=== PATIENT | male | born 1990 | race African-American/Black ===

== ENCOUNTER 2017-12-03 19:33 | Emergency (ER) | payer OTHER ==
[~2017-12-03] VITALS: Ht 188 cm; Wt 98.4 kg
[2017-12-03] MEDS ORDERED: IV NORMAL SALINE 1,000ML 1,000 ML IV ONE (21:15)
--- NOTE | 2017-12-03 21:17 | RAD ---
History: Dislocated playing basketball. Previous dislocations. Comparison: None. Findings: 2 AP external rotation and one scapular Y view of the right shoulder, 3 images. Anterior dislocation of the glenohumeral joint is seen. Impression: Anterior glenohumeral dislocation. Electronically signed by: Yohan Argueta MD (12/03/2017 9:14 PM) [facility]
[2017-12-03] MEDS ORDERED: ETOMIDATE 40 MG/20 ML VIAL. IV ONE ×2 (21:30→22:00)
[2017-12-03] MEDS ORDERED: IBUP200T44 PO (22:23)
--- NOTE | 2017-12-03 22:24 | PHYS DOC ---
Past History Past Medical History Right shoulder dislocations Past Surgical History: No Surgical History Smoking: Cigarettes Alcohol Use: Occasionally Drug Use: Marijuana Adult General Chief Complaint Chief Complaint: SHOULDER INJURY HPI HPI 27-year-old male presents from correctional facility ([facility]) with report of right shoulder dislocation which occurred approximately 3 hours prior to arrival. Patient reports history of multiple prior right shoulder dislocations. Patient reports he was playing basketball and was reaching for ball when injury occurred. Denies head trauma. Denies neck pain. Denies numbness or tingling. Review of Systems Review of Systems Constitutional: Denies fever or chills [] Respiratory: Denies cough or shortness of breath [] Cardiovascular: Denies chest pain or syncope GI: Denies abdominal pain, nausea, vomiting, bloody stools or diarrhea [] Musculoskeletal: Reports right shoulder pain Integument: Denies rash or skin lesions [] Neurologic: Denies focal weakness or sensory changes []] Complete systems were reviewed and found to be within normal limits, except as documented in this note. Current Medications Current Medications Current Medications Medications (Trade) Dose Ordered Sig/Sami Start Time Stop Time Status Last Admin Dose Admin Etomidate (Amidate) 5 mg 1X ONCE 12/03/17 22:00 12/03/17 22:01 DC 12/03/17 21:57 5 MG Fentanyl Citrate (Fentanyl 2ml Vial) 75 mcg 1X ONCE 12/03/17 21:30 12/03/17 21:31 DC 12/03/17 21:36 75 MCG Sodium Chloride 1,000 ml @ 1,000 mls/hr 1X ONCE 12/03/17 21:15 12/03/17 22:14 DC 12/03/17 21:36 1,000 MLS/HR Allergies Allergies Allergies Coded Allergies Type Severity Reaction Last Updated Verified iodine Allergy Intermediate 12/03/17 Yes shellfish derived Allergy Intermediate 12/03/17 Yes Physical Exam Physical Exam Constitutional: Well developed, well nourished; appears uncomfortable HENT: Normocephalic, atraumatic, Eyes: PERRL, EOMI, conjunctiva normal, no discharge. [] Neck: Normal range of motion, no tenderness, supple, no stridor. [] Cardiovascular:Heart rate regular rhythm, no murmur [] Lungs & Thorax: Bilateral breath sounds clear to auscultation [] Skin: Warm, dry, no erythema, no rash. [] Extremities: Right shoulder deformity consistent with anterior dislocation appreciated, right radial pulse +2/4, Refill less than 2 seconds, sensation intact Neurologic: Alert and oriented X 3, normal motor function, normal sensory function, no focal deficits noted. [] Psychologic: Affect normal, judgement normal, mood normal. [] Current Patient Data Vital Signs Vital Signs Date Time Temp Pulse Resp B/P (MAP) Pulse Ox O2 Delivery O2 Flow Rate FiO2 12/03/17 19:35 99.0 57 18 160/94 (116) 98 Room Air EKG EKG [] Radiology/Procedures Radiology/Procedures PROCEDURE: SHOULDER 2+V RIGHT History: Dislocated playing basketball. Previous dislocations. Comparison: None. Findings: 2 AP external rotation and one scapular Y view of the right shoulder, 3 images. Anterior dislocation of the glenohumeral joint is seen. Impression: Anterior glenohumeral dislocation. Electronically signed by: Yohan Argueta MD (12/03/2017 9:14 PM) [facility]] PROCEDURE: SHOULDER 2+V RIGHT History: Status post reduction. Comparison: Earlier December 03, 2017. Findings: Scapular Y and AP internal rotation views of the right shoulder. There is interval reduction of anterior glenohumeral dislocation. Osseous defect is seen involving the posterolateral humeral head, compatible with Hill-Sachs lesion. Impression: 1. Interval reduction of right glenohumeral dislocation. 2. Hill-Sachs lesion. Electronically signed by: Yohan Argueta MD (12/03/2017 10:21 PM) [facility] Course & Med Decision Making Course & Med Decision Making Pertinent Labs and Imaging studies reviewed. (See chart for details) Patient presents with history of present illness and physical exam consistent for right anterior shoulder dislocation. Limb neurovascularly intact. X-ray obtained which confirmed anterior dislocation. Shoulder manipulation and interval reduction performed under moderate sedation. Shoulder immobilizer placed. Repeat x-ray confirmed no fracture with successful reduction.Patient stable for discharge back to correctional facility with outpatient follow-up with orthopedics. Discussed findings and plan with patient, who acknowledges understanding and agreement. Dragon Disclaimer Dragon Disclaimer This electronic medical record was generated, in whole or in part, using a voice recognition dictation system. Splinting Splinting : Location: right shoulder Pre-Made Type: shoulder immobilizer Pre-Proc Neuro Vasc Exam: normal Post-Proc Neuro Vasc Exam: normal, unchanged from pre-exam Joint Reduction Joint Reduction : Joint Reduction Site: shoulder (R) Conscious Sedation: Yes Reduction Attempts: 1 Pre-Procedure NV Exam: Yes Post-Procedure NV Exam: Yes Post Joint Reduction Film: joint reduced (without fracture appreciated) RISKS/ALTERNATIVES Risks/Alternatives Risks and alternatives of this type of sedation and procedure discussed with: RISK/ALTERNATIVES DISCUSSED: Patient H & P ON CHART H & P H & P on chart and reviewed for co-morbid conditions and appropriate labs. H&P ON CHART: Yes STATUS PREG STATUS ASSESSED: N/A MEDS/ALLERGIES REVIEWED Meds/Allergies Reviewed Medications and Allergies including time and route of recently administered narcotics and sedatives. MEDS/ALLERGIES REVIEWED: Yes ASA RATING ASA RATING: I AIRWAY ASSESSMENT Airway Assessment Airway patency, oral function limitations, presence of caps, crowns, dentures, partials, and ability to extend neck assessed. AIRWAY ASSESSMENT: Yes MALLAMPATI SCORE MALLAMPATI SCORE: II PRE-SEDATION ASSESSMENT PRE-SEDATION PHYSICAL: Yes Departure Departure: Impression: Primary Impression: Shoulder dislocation Disposition: 01 HOME, SELF-CARE (back to correctional facility) Condition: STABLE Referrals: PCP,NO (PCP) Patient Instructions: Shoulder Dislocation, [id number] Additional Instructions: Orthopedics- Dr. BULLARD Scripts Ibuprofen (MOTRIN IB) 200 Mg Tablet 400 MG PO Q6HRS PRN for PAIN, #20 TAB Prov: YOHAN GARCIA DO 12/03/17 Joint Reduction Procedure Joint Indication: Right shoulder dislocation Consent: Written (on chart) Procedure: The pre-reduction exam showed anterior dislocation of right shoulder. The patient was placed in sitting position. Anesthesia/pain control utilized with 75mcg of fentanyl and 15 mg of etomidate. Etomidate administered by myself. Reduction of the shoulder] was performed by traction/ countertraction. Post reduction films with interval reduction without fracture. A post-reduction exam revealed continued neurovascularly intact limb]. The affected area was immobilized with a shoulder immobilizer. The patient tolerated the procedure well. Complications: None. Problem Qualifiers Primary Impression: Shoulder dislocation Encounter type: initial encounter Laterality: right Qualified Codes: S43.004A - Unspecified dislocation of right shoulder joint, initial encounter YOHAN GARCIA DO Dec 03, 2017 22:24
[2017-12-03 22:30] VITALS: BP 160/99
== END 2017-12-03 22:34 | disposition home or self-care (01) ==
LOC: ER 19:33 → EEVIPCON 19:33 → ER 22:34
DX: S43.004A Unspecified dislocation of right shoulder joint, initial encounter (principal); F17.210 Nicotine dependence, cigarettes, uncomplicated; Z91.041 Radiographic dye allergy status; Z91.013 Allergy to seafood; X58.XXXA Exposure to other specified factors, initial encounter; Y93.67 Activity, basketball; Y99.8 Other external cause status; Y92.89 Other specified places as the place of occurrence of the external cause
CPT/HCPCS: 23650; 73030; 99285; J3010; 99152; 99153; J7030